=== PATIENT | male | born 1995 | race Hispanic/Latino ===

== ENCOUNTER 2024-05-19 23:16 | Emergency (ER) | payer SELFPAY ==
[2024-05-19 23:23] VITALS: BP 148/118
[2024-05-19 23:25] VITALS: BP 138/44
== END 2024-05-19 23:55 | disposition expired | DRG 296 ==
LOC: ED 23:16 → EDBD 23:40 → ED 23:55
PROC: 0BH17EZ Insertion of Endotracheal Airway into Trachea, Via Natural or Artificial Opening (ICD-10-PCS; principal; 2024-05-19)
PROC: 5A1935Z Respiratory Ventilation, Less than 24 Consecutive Hours (ICD-10-PCS; 2024-05-19)
PROC: 5A12012 Performance of Cardiac Output, Single, Manual (ICD-10-PCS; 2024-05-19)
DX: I46.9 Cardiac arrest, cause unspecified (principal); S31.609A Unspecified open wound of abdominal wall, unspecified quadrant with penetration into peritoneal cavity, initial encounter; I49.01 Ventricular fibrillation; X58.XXXA Exposure to other specified factors, initial encounter; Y92.009 Unspecified place in unspecified non-institutional (private) residence as the place of occurrence of the external cause